=== PATIENT | female | born 2000 | race Caucasian/White ===

== ENCOUNTER 2023-02-20 18:08 | Outpatient (REF) | payer MEDICAID, SELFPAY ==
[2023-02-20 18:59] LABS: Influenza A PCR NEGATIVE (Negative); Influenza B PCR NEGATIVE (Negative); Resp Syncy Virus RNA Qual PCR NEGATIVE (Negative); SARS COV2 PCR INHOUSE NEGATIVE (Negative)
== END 2023-02-20 18:09 | disposition home or self-care (01) ==
LOC: HO.HHCLNP 18:08
PROVIDERS: Visit Provider Emergency Medicine
DX: Z20.822 Contact with and (suspected) exposure to COVID-19 (principal); R68.89 Other general symptoms and signs
CPT/HCPCS: 0241U

== ENCOUNTER 2023-02-28 11:04 | Emergency (ER) | payer MEDICAID, SELFPAY ==
[2023-02-28 11:11] VITALS: BP 120/80; PULSE 88; O2SAT 98
[2023-02-28 11:12] VITALS: BP 118/65; PULSE 86; RESP 18; TEMP 36.8; O2SAT 98; BMI 19.3
--- NOTE | 2023-02-28 11:19 | ED.GENADULT ---
HPI - General Adult General Chief complaint: General Medical Stated complaint: COUGH,NAUSEA FROM SCHOOL PER EMS Time Seen by Provider: 02/28/23 12:21 Source: patient Mode of arrival: ambulatory Limitations: no limitations History of Present Illness HPI narrative: This is a 22-year-old female presenting to the emergency department via ambulance for common planes of fatigue, malaise, myalgias, nonproductive cough, substernal nonradiating chest pressure that is mostly present with cough, poor p.o. intake, body aches and pains and lightheadedness for the past 4 days worsening. Denies sick contacts. Patient reports she had subjective fevers and chills yesterday however not today. Denies headache, vision changes, weakness, hematemesis, changes in bowel habits or urinary habits, shortness of breath. Related Data Previous Rx's Medication Instructions Recorded albuterol sulfate 90 mcg/actuation 2 inh inhalation Q4-6H PRN 02/28/23 breath activated powder inhaler shortness of breath or wheezing #1 ea benzonatate 100 mg capsule 100 mg PO BID PRN cough #20 caps 02/28/23 Allergies Allergy/AdvReac Type Severity Reaction Status Date / Time No Known Allergies Allergy Verified 02/28/23 11:19 Review of Systems Review of Systems: Constitutional : No Weight loss, + Fever, + Chills, + Fatigue, + Malaise ENT/Mouth : No sore throat, No Rhinorrhea Eyes: No Eye Pain, No Swelling, No Redness Cardiovascular : + Chest Pain, No SOB, No Dyspnea on Exertion, No Orthopnea, No Edema, No Palpitations Respiratory : + Cough, No Sputum, No Wheezing Gastrointestinal : No Nausea, No Vomiting, No Diarrhea, No Constipation, No abdominal Pain, No Hematochezia, No Melena Genitourinary : No Dysuria, No Urinary Frequency, No Hematuria, Musculoskeletal : No joint pain, No Myalgias, No Joint Swelling Skin : No Skin Lesions, No rash Neuro : No Weakness, No Numbness, No Dizziness, No Headache Psych : No Anxiety/Panic, No Depression All other systems reviewed and are negative Yes all other systems are reviewed and are negative PMFSH Past Medical History Attestation statement: The following information was validated with the patient. Source: old records reviewed and nursing notes reviewed Social History Social History Advance Directives: No Advance Directives Information Provided: Yes Physical Exam ED Vital Signs: Vital Signs - 24 hr 02/28/23 11:12 Temperature 98.3 F Pulse Rate 86 Respiratory Rate 18 Blood Pressure 118/65 Pulse Oximetry 98 Oxygen Delivery Method Room Air BMI result Body Mass Index 19.3 Course Course Course Narrative: This is a rapid medical exam: Additional HPI, ROS, PE not included below will be deferred to primary provider. Patient is a 22-year-old Japanese-speaking female complaining of 4 days of decreased appetite, nausea, weakness, lightheadedness, nonproductive cough, and chest pain. Denies vomiting, diarrhea, constipation. [place] subjective fever yesterday. Plan: EKG, CXR, labs Reevaluation(s) Reevaluation #1: CBC appears to be within normal limits. Chemistry unremarkable. Troponin negative, EKG nonischemic. Beta hCG negative. COVID, influenza, negative. Chest x-ray pending. This is likely viral illness Time: 13:06 Medical Decision Making Medical Decision Making [facility] Narrative: 1304 22-year-old female presents with fatigue, malaise, body aches and pains, poor p.o. intake, cough the past 4 days. Physical examination benign Likely viral illness versus bronchitis versus COVID versus influenza versus RSV. Unlikely PE (perc negative), pneumonia, respiratory distress, atypical presentation of ACS. Plan viral testing basic labs and chest x-ray Differential Diagnosis Differential Diagnoses: The differential diagnosis associated with the presentation includes Likely viral illness versus bronchitis versus COVID versus influenza versus RSV. Unlikely PE, pneumonia, respiratory distress, atypical presentation of ACS. Admission/Observation Consideration of admission/observation: Escalation of care including admission/observation considered unlikely unlikelyy Lab Data [facility] Lab Attestation statement: I reviewed the patient's lab results. 02/28/23 11:34 02/28/23 11:34 Labs: Lab Results 02/28/23 Range/Units 11:34 WBC 6.2 (4.8-10.8) X10*3/uL RBC 4.75 (4.20-5.50) X10*6/uL Hgb 13.2 (12.0-16.0) g/dl Hct 41.1 (37.0-47.0) % MCV 86.5 (80.0-98.0) fL MCH 27.8 (27.0-33.0) pg MCHC 32.1 (31.0-35.0) g/dl RDW 13.4 (11.0-16.0) % Plt Count 220 (160-400) X10*3/uL MPV 9.6 (9.4-12.3) fL Immature Gran % (Auto) 0.2 (0.0-0.4) % Neut % (Auto) 75.0 H (45-73) % Lymph % (Auto) 14.9 L (20-40) % [place] % (Auto) 6.6 (2-11) % Eos % (Auto) 3.0 (0-4) % Baso % (Auto) 0.3 (0-2) % Lymph # (Auto) 0.9 L (1.2-4.9) X10*3/uL [place] # (Auto) 0.4 (0.1-1.2) X10*3/uL Eos # (Auto) 0.2 (0.0-0.4) X10*3/uL Baso # (Auto) 0.0 (0.0-0.2) X10*3/uL Abs Immat Gran (auto) 0.01 (0.00-0.03) X10*3/uL Absolute Neuts (auto) 4.7 (2.0-8.3) x10*3/uL Absolute Nucleated RBC 0.000 (0.0-0.012) X10*3/uL Nucleated RBC % (auto) 0.0 (0.0-0.2) /100WBC Sodium 140 (135-145) mmol/L Potassium 4.3 (3.3-5.1) mmol/L Chloride 105 (96-108) mmol/L Carbon Dioxide 25 (22-29) mmol/L Anion Gap 14 (12-20) BUN 11 (9-16) mg/dL Creatinine 0.70 (0.5-1.4) mg/dL Estim Creat Clear Calc 99.2 Estimated GFR > 60 Random Glucose 86 (60-115) mg/dL Calcium 9.4 (8.4-10.2) mg/dL Total Bilirubin 0.5 (0.0-1.0) mg/dL AST 26 (5-31) U/L ALT 16 (0-31) U/L Alkaline Phosphatase 53 (39-117) U/L Troponin I High Sens < 2.7 (<3.5-17.0) ng/L Total Protein 7.8 (6.5-8.0) g/dL Albumin 4.6 (3.5-5.0) g/dL Beta HCG, Quant < 2 mIU/mL COVID-19 (HERNAN) Negative (Negative) COVID-19 Clin Com See Note Influenza Type A (ISSAC) Negative (Negative) Influenza Type B (ISSAC) Negative (Negative) Influenza A & B Note See Note Independent Interpretation I performed an independent interpretation of an: EKG (Ventricular rate of 76, AK normal, QRS normal, QT/QTC normal EKG with normal sinus rhythm with sinus arrhythmia, no ST elevations or inversions concerning for ischemia.) and Plain X-Ray Radiology Impression Discussion of test interpretation with radiology: I have reviewed the radiologist's reading. Critical Care Time Critical Care Time Critical Care Time: No Discharge Plan Discharge Clinical Impression: Viral illness Patient Disposition: Home, Self-Care Instructions: Viral Syndrome (ED) Additional Instructions: Take your medications as prescribed. If you were prescribed antibiotics today, it is important that you take your medication to their entirety, do not skip any doses, do not finish them early. Follow-up with your primary care provider this week. Return to the emergency department with new or worsening symptoms. Such as fevers, chills, chest pain, shortness of breath, nausea, vomiting, dizziness, headache, vision changes, lethargy In case of emergency call 911 Prescriptions: New benzonatate 100 mg capsule 100 mg PO BID PRN (Reason: cough) Qty: 20 0RF albuterol sulfate 90 mcg/actuation aerosol powdr breath activated 2 inh inhalation Q4-6H PRN (Reason: shortness of breath or wheezing) Qty: 1 0RF Referrals: [facility] [Primary Care Provider] - 2 days Stand Alone Forms: Work/School Release
== END 2023-02-28 14:03 | disposition home or self-care (01) ==
PROVIDERS: Emergency Provider Emergency Medicine Emergency Medical Services
DX: B34.9 Viral infection, unspecified (principal); R05.9 Cough, unspecified; M79.10 Myalgia, unspecified site; Z11.52 Encounter for screening for COVID-19
CPT/HCPCS: 36415; 71046; 80053; 84484; 84702; 85025; 87502; 87635; 93005; 99283

== ENCOUNTER 2023-04-02 14:34 | Outpatient (AMB) | payer MEDICAID, SELFPAY ==
--- NOTE | 2023-04-02 14:38 | MHC.OFFVIS ---
Intake Vital Signs 04/02/23 14:39 Height 5 ft 3 in Weight 112 lb 6.972 oz BMI 19.9 BP 115/67 Blood Pressure Location Lt brachial Position Sitting Pulse 83 Intake Visit Reasons: HEARTBURN Intake Note: Jessenia presents in the office as a new patient for GERD. CC: She is here today due to acid reflux. She states that she has pains in her stomach sometimes. She does have some constipation. Administrative Staff Supervisor Required: Yes Administrative Staff Supervisor Name: Michelle [id number] Allergies No Known Allergies Allergy (Verified 04/02/23 14:40) Medication List - Last Reconciled 04/02/23 by Ginny Forrester PA-C albuterol sulfate 90 mcg/actuation 2 inhalations inhalation Q4-6H PRN benzonatate 100 mg PO BID PRN famotidine 20 mg PO BID fluoride (sodium) 1.1% (Denta 5000 Plus) appl PO BEDTIME HPI HPI Comments History of Present Illness Details A 22 y/o female referred for gastritis- she had upper abdominal roger since she was little- the pains use to be stronger. Appetite is good she was taking omeprazole/ famotidine-only take prn She once in a while has constipation- depends on diet No nausea, V/D, fever or chills. No wt loss PFSH Social History (Updated 04/02/23 @ 14:51 by Ginny Forrester PA-C) Household Members Other:: G. mother Patient Tobacco Use Status: Never used Tobacco Current occupational status: employed Current occupation: [employer] Review of Systems Const All systems reviewed & are unremarkable except as noted in HPI and below Card Denies chest pain and Denies dyspnea Resp Denies dyspnea GI Denies hematochezia, Reports dyspepsia, Denies nausea and Denies vomiting Psych Reports anxiety Physical Exam Vital Signs: Last Vital Signs Pulse 83 04/02/23 14:39 BP 115/67 04/02/23 14:39 BMI result Body Mass Index 19.9 Const General: cooperative, healthy appearing and comfortable Nutritional Appearance: thin Limitations: language barrier Eyes Sclerae: sclerae normal Resp Effort & Inspection: normal respiratory effort and able to speak in complete sentences Auscultation: clear to auscultation bilaterally, no rales, no rhonchi and no wheezes Cardio Rate: regular rate Rhythm: regular rhythm Heart sounds: S1 normal heart sound present and S2 normal heart sound present GI Palpation (GI): Soft to palpation and nontender Auscultation: normal bowel sounds Skin General skin exam: no rashes or lesions noted Extrem General: Yes full ROM Psych Appearance: grossly normal and well kempt Mental Status: mental status grossly normal Speech and movement: Clear speech present Affect: normal affect Attitude: cooperative Thought process: Normal thought process present Thought content: Normal thought content present Results Reviewed Results Reviewed: reviewed labs-02/28/23- Assessment & Plan Assessment & Plan (1) Heartburn: Comment: very pleasant - stop famotodine begin carafate 1 gm bid Code(s): R12 - Heartburn Plan HP stool antigen Orders: Orders H pylori Ag Stool 1 Week A04.8 - Other specified bacterial intestinal infections Medications: New sucralfate 1 g PO BID 4 weeks 56 tabs 1RF Changed From benzonatate 100 mg PO BID PRN 20 caps 0RF cough To benzonatate 100 mg PO BID PRN cough Patient Instructions: carafate x 2 weeks- HP stool antigen if positive - tx call with concerns pole cutter- Coding Level of Care Code New Pt Level 3 (98898) Diagnoses Heartburn R12 Time Spent (min) 30 Comment [id number]
[2023-04-02 14:39] VITALS: BP 115/67; PULSE 83; BMI 19.9
== END 2023-04-02 15:05 | disposition home or self-care (01) ==
PROVIDERS: Visit Provider Physician Assistant
DX: R12 Heartburn (principal)
CPT/HCPCS: 99203

== ENCOUNTER 2023-04-02 14:34 | Outpatient (REF) | payer MEDICAID, SELFPAY | END 2023-04-02 14:35 | disposition home or self-care (01) | LOC: HO.LAB 14:34 | PROVIDERS: Visit Provider Physician Assistant | DX: K21.9 Gastro-esophageal reflux disease without esophagitis (principal); K59.00 Constipation, unspecified; Z79.899 Other long term (current) drug therapy | CPT/HCPCS: 99212 ==

== ENCOUNTER 2023-04-06 17:40 | Outpatient (REF) | payer MEDICAID, SELFPAY | END 2023-04-06 17:41 | disposition home or self-care (01) | LOC: HO.LNP 17:40 | PROVIDERS: Visit Provider Physician Assistant | DX: Z13.89 Encounter for screening for other disorder (principal) ==

== ENCOUNTER 2023-04-08 | Outpatient (REF) | payer MEDICAID, SELFPAY | END 2023-04-08 00:01 | disposition home or self-care (01) | LOC: HO.LNP | PROVIDERS: Visit Provider Physician Assistant | DX: A04.8 Other specified bacterial intestinal infections (principal) | CPT/HCPCS: 87338 ==

== ENCOUNTER 2023-05-14 14:51 | Outpatient (AMB) | payer MEDICAID, SELFPAY ==
--- NOTE | 2023-05-14 15:09 | A.OFFVIS_ITS ---
Intake Vital Signs 05/14/23 15:11 Height 5 ft 3 in Weight 110 lb BMI 19.5 BP 101/59 L Blood Pressure Location Lt brachial Position Sitting Pulse 80 Intake Visit Reasons: 6 week follow up med check Intake Note: Patient 6 weeks follow up for med check. Patient cc: diarrhea and denies any other GI issues. Soft Sugar Cutter Required: Yes Soft Sugar Cutter Name: [facility] [place] [place] Interpeter Accompanied by: Self / Same As Patient Allergies No Known Allergies Allergy (Verified 05/14/23 15:09) Medication List - Last Reconciled 05/14/23 by Ginny Forrester PA-C albuterol sulfate 90 mcg/actuation 2 inhalations inhalation Q4-6H PRN benzonatate 100 mg PO BID PRN famotidine 20 mg PO BID fluoride (sodium) 1.1% (Denta 5000 Plus) appl PO BEDTIME sucralfate 1 g PO BID 4 weeks HPI HPI Comments History of Present Illness Details A 22 y/o seen with HB- sx resolved with famotodine No GI complaints HP neg Appetite good No bowel issues No N/V/D/ heartburn- fever or chills PFSH Social History Household Members Other:: G. mother Patient Tobacco Use Status: Never used Tobacco Current occupational status: employed Current occupation: [employer] Review of Systems Const All systems reviewed & are unremarkable except as noted in HPI and below Card Denies chest pain and Denies dyspnea Resp Denies dyspnea GI Denies bloating, Denies change in bowel habits, Denies heartburn, Denies nausea and Denies vomiting Physical Exam Vital Signs: Last Vital Signs Pulse 80 05/14/23 15:11 BP 101/59 L 05/14/23 15:11 BMI result Body Mass Index 19.5 Const General: cooperative, healthy appearing, comfortable and no acute distress Eyes Sclerae: sclerae normal Resp Effort & Inspection: normal respiratory effort and able to speak in complete sentences Skin General skin exam: no rashes or lesions noted Extrem General: Yes full ROM Psych Appearance: grossly normal and well kempt Mental Status: mental status grossly normal Speech and movement: Normal speech and movement present Affect: normal affect Attitude: cooperative Thought process: Normal thought process present Thought content: Normal thought content present Insight: Good insight present (Psych) Judgement: Good judgement present (Psych) Assessment & Plan Assessment & Plan (1) Heartburn: Comment: very pleasant -sx resolved dietary modifications cont famotodine Code(s): R12 - Heartburn Plan: dietary modifications cont famotodine Plan dietary modifications cont famotodine Patient Instructions: precautions reviewed, avoid culprits dietary modifications cont famotodine Coding Level of Care Code Est Pt Level 3 (04967) Diagnoses Heartburn R12 Time Spent (min) [address]
[2023-05-14 15:11] VITALS: BP 101/59; PULSE 80; BMI 19.5
== END 2023-05-14 15:27 | disposition home or self-care (01) ==
PROVIDERS: Visit Provider Physician Assistant
DX: R12 Heartburn (principal)
CPT/HCPCS: 99213

== ENCOUNTER → 2023-05-14 14:51 | Outpatient (BNVA) | payer MEDICAID, SELFPAY | PROVIDERS: Visit Provider Physician Assistant | DX: R12 Heartburn (principal) | CPT/HCPCS: 99212 ==

== ENCOUNTER 2025-05-04 16:27 | Emergency (ER) | payer OTHER, SELFPAY ==
--- NOTE | ~2025-05-04 | US_ITS ---
EXAMINATION: US ABDOMEN LIMITED CLINICAL INFORMATION: Upper abdominal pain.. COMPARISON: None available. TECHNIQUE: Real-time ultrasound of the right upper quadrant abdomen using grayscale technique. FINDINGS: Liver measures 14 cm. Coarse echotexture. No nodular surface. No solid or cystic lesion. Main portal vein is patent with normal hepatopedal flow direction. Gallbladder is fluid-filled contracted. No pericholecystic fluid collection or gallbladder wall thickening. Common bile duct measures 3 mm. Right kidney measures 11 cm. Normal echotexture. Renal cortical thickness is normal. No hydronephrosis. No solid or cystic lesion. No ascites. US/US abdomen limited IMPRESSION: No cholelithiasis or choledocholithiasis. No ascites. Normal-sized liver. Electronically signed by: Umer Hall MD 05/05/2025 06:58 AM PAT
[2025-05-04 17:21] VITALS: BP 127/60; PULSE 80; RESP 18; TEMP 36.8; O2SAT 99; BMI 19.9
--- NOTE | 2025-05-04 17:38 | ED.GENADULT ---
HPI - General Adult General Chief complaint: Abdominal Pain Stated complaint: Nausea Vomiting Diarrhea Time Seen by Provider: 05/05/25 04:05 Source: patient and dedicated truck driver Mode of arrival: ambulatory Limitations: no limitations History of Present Illness ED Provider: MAKENNA BURROWS narrative: 24-year-old female with no significant past medical history and no surgery here with complaint of 1 week upper abdominal pain as well as nausea and vomiting. She has had diarrhea but only to about today. She blames it on a recent antibiotic that she was started on for her throat ( 2 weeks ago). She states she stopped taking it as she thought it was making her symptoms worse. she states no recent travel, sick contacts, recent procedures. She has not had a fever. She has not take a lot she has never had this before. MD complaint: Upper abdominal pain, nausea, vomiting Onset (ago): week(s) (1) Location: abdomen Radiation: non-radiation Severity: moderate Quality: aching Pain Consistency: intermittent Relieving factors: none Exacerbating factors: eating Associated symptoms: loss of appetite, malaise and nausea/vomiting Treatments prior to arrival: none Related Data Home Medications ?Medication ?Instructions ?Recorded ?Confirmed benzonatate 100 mg capsule 100 mg PO BID PRN cough 04/02/23 05/14/23 famotidine 20 mg tablet 20 mg PO BID 04/02/23 05/14/23 fluoride (sodium) 1.1 % dental appl PO BEDTIME 04/02/23 05/14/23 cream (Denta 5000 Plus) Previous Rx's ?Medication ?Instructions ?Recorded albuterol sulfate 90 mcg/actuation 2 inh inhalation Q4-6H PRN 02/28/23 breath activated powder inhaler shortness of breath or wheezing #1 ea sucralfate 1 gram tablet 1 g PO BID 4 weeks #56 tabs 04/02/23 ondansetron 4 mg disintegrating 4 mg PO Q8H PRN nausea and 05/05/25 tablet vomiting #20 tabs sucralfate 100 mg/mL oral 1 g (10 mL) PO BID 7 days #140 mL 05/05/25 suspension Allergies Allergy/AdvReac Type Severity Reaction Status Date / Time No Known Allergies Allergy Verified 05/04/25 17:23 Review of Systems Review of Systems: Constitutional : No Weight loss, No Fever, No Chills ENT/Mouth : No sore throat, No Rhinorrhea Eyes: No Swelling, No Redness Cardiovascular : No Chest Pain, No SOB, NoEdema Respiratory : No Cough, No Sputum, No Wheezing Gastrointestinal : Positive Nausea, Positive Vomiting, no Diarrhea, positive abdominal Pain, No Hematochezia, No Melena Genitourinary : No Dysuria, No Urinary Frequency, No Hematuria, No Urgency Musculoskeletal : No joint pain, No Myalgias, No Joint Swelling Skin : No Skin Lesions, No rash All other systems reviewed and are negative. [facility] Past Medical History Attestation statement: The following information was validated with the patient. Source: old records reviewed Medical History (Updated 05/05/25 @ 07:16 by Eleni Vargas DO) Heartburn Social History Social History Household Members Other:: G. mother Patient Tobacco Use Status: Never used Tobacco Advance Directives: No Advance Directives Information Provided: Yes Current occupational status: employed Current occupation: [employer] Physical Exam ED Vital Signs: Vital Signs - 24 hr 05/04/25 17:21 05/04/25 20:09 05/05/25 00:16 Temperature 98.2 F 99.9 F 98 F Pulse Rate 80 75 66 Respiratory Rate 18 16 16 Blood Pressure 127/60 105/51 L 108/55 L Pulse Oximetry 99 99 98 Oxygen Delivery Method Room Air Room Air Room Air 05/05/25 07:05 05/05/25 07:41 Temperature 98.1 F Pulse Rate 78 78 Respiratory Rate 14 14 Blood Pressure 101/59 L 101/59 L Pulse Oximetry 99 99 Oxygen Delivery Method Room Air Room Air BMI result Body Mass Index 19.9 Appearance: Alert. Oriented X3. No acute distress. Eyes: Pupils equal, round and reactive to light. ENT: Pharynx normal. Neck: Normal inspection. Neck supple. CVS: Normal heart rate and rhythm. Pulses normal. Respiratory: No respiratory distress. Breath sounds normal. Abdomen: Soft and mild upper abdominal tenderness negative Hurtado's sign Skin: Skin warm and dry. Normal skin color. Extremities: No lower extremity edema. Neuro: Oriented X 3. No motor deficit. No sensory deficit. Course Course Course Narrative: RME: 24 yold female presents to the ED for upper abdominal pain with nausea and vomitting. SARS labs ordeed Medications Administered Discontinued Medications Generic Name Dose Route Start Last Admin Trade Name Freq PRN Reason Stop Dose Admin Lactated Ringer's 1,000 mls @ 999 mls/hr 05/05/25 04:30 05/05/25 06:16 Lr IV 05/05/25 05:30 Infused .Q1H1M ONE Infusion Ondansetron HCl 4 mg 05/05/25 04:31 05/05/25 04:45 Ondansetron Hcl 4 Mg/2 Ml Vial IVPUSH 05/05/25 04:32 4 mg ONCE ONE Administration Medical Decision Making Medical Decision Making [facility] Narrative: 24-year-old female with no past medical history here with complaint of 1 week of nausea vomiting she also has upper abdominal pain. At this time she has no right lower quadrant pain. I suspect after this amount of time if she had acute infection she would be more ill-appearing. I am going to obtain basic labs, hydrate and started on nausea medication. I am also going to obtain an ultrasound of the gallbladder given her upper abdominal pain. She has not had any diarrhea here and even though it was associated with antibiotic she only has 2 a day this seems very atypical for C diff. I suspect that she we will need supportive medications like antacids in nausea medications. Differential Diagnosis Differential Diagnoses: The differential diagnosis associated with the presentation includes Gastritis, biliary colic, dehydration, , AZAEL Admission/Observation Consideration of admission/observation: Escalation of care including admission/observation considered She feels much better is able to tolerate water her workup has been reassuring Lab Data [facility] Lab Attestation statement: I reviewed the patient's lab results. 05/04/25 17:42 05/04/25 17:42 Labs: Lab Results 05/04/25 05/04/25 Range/Units 17:42 17:46 WBC 4.4 L (4.8-10.8) X10*3/uL RBC 4.87 (4.20-5.50) X10*6/uL Hgb 13.3 (12.0-16.0) g/dl Hct 41.9 (37.0-47.0) % MCV 86.0 (80.0-98.0) fL MCH 27.3 (27.0-33.0) pg MCHC 31.7 (31.0-35.0) g/dl RDW 13.2 (11.0-16.0) % Plt Count 233 (160-400) X10*3/uL MPV 10.2 (9.4-12.3) fL Immature Gran % (Auto) 0.2 (0.0-0.4) % Neut % (Auto) 62.6 (45-73) % Lymph % (Auto) 26.6 (20-40) % [place] % (Auto) 7.2 (2-11) % Eos % (Auto) 2.9 (0-4) % Baso % (Auto) 0.5 (0-2) % Lymph # (Auto) 1.2 (1.2-4.9) X10*3/uL [place] # (Auto) 0.3 (0.1-1.2) X10*3/uL Eos # (Auto) 0.1 (0.0-0.4) X10*3/uL Baso # (Auto) 0.0 (0.0-0.2) X10*3/uL Abs Immat Gran (auto) 0.01 (0.00-0.03) X10*3/uL Absolute Neuts (auto) 2.8 (2.0-8.3) x10*3/uL Absolute Nucleated RBC 0.000 (0.0-0.012) X10*3/uL Nucleated RBC % (auto) 0.0 (0.0-0.2) /100WBC Sodium 142 (135-145) mmol/L Potassium 3.8 (3.3-5.1) mmol/L Chloride 106 (96-108) mmol/L Carbon Dioxide 27 (22-29) mmol/L Anion Gap 13 (12-20) BUN 13 (9-16) mg/dL Creatinine 0.69 (0.5-1.4) mg/dL Estim Creat Clear Calc 101.8 Estimated GFR > 60 Random Glucose 91 (60-115) mg/dL Calcium 9.6 (8.4-10.2) mg/dL Total Bilirubin 0.3 (0.0-1.0) mg/dL AST 26 (5-31) U/L ALT 19 (0-31) U/L Alkaline Phosphatase 59 (39-117) U/L Total Protein 8.1 H (6.5-8.0) g/dL Albumin 5.0 (3.5-5.0) g/dL Lipase 19 (8-78) U/L Beta HCG, Quant < 2 mIU/mL Urine Color Yellow Urine Appearance Clear Urine pH 5.0 (5.0-9.0) Ur Specific [place] >= 1.030 H (1.005-1.025) Urine Protein Negative (Neg-Trace) mg/dL Urine Glucose (UA) Negative (Negative) mg/dL Urine Ketones Trace (Negative) mg/dL Urine Blood Moderate (2+) H (Negative) Urine Nitrite Negative (Negative) Ur Leukocyte Esterase Negative (Negative) Urine RBC >20 H (0-2) /HPF Urine WBC 0-5 (0-5) /HPF Ur Squamous Epith Cells 0-2 (0-2) /HPF Urine Bacteria None Seen (None Seen) Hyaline Casts 0-2 (0-2) /LPF Urine Test NEGATIVE (NEGATIVE) Influenza Type A (PCR) NEGATIVE (Negative) Influenza Type B (PCR) NEGATIVE (Negative) RSV RNA Qual (PCR) NEGATIVE (Negative) SARS-CoV-2 RNA (RT-PCR) NEGATIVE (Negative) S. pyogenes GrpA ISSAC Negative (Negative) Independent Interpretation I performed an independent interpretation of an: Ultrasound ( no biliary colic) Radiology Impression Discussion of test interpretation with radiology: I have reviewed the radiologist's reading. Independent Historian Clinical information obtained from an independent historian. History obtained from or confirmed by: Spouse External Record Review External record reviewed: Outpatient record Prescription Management I considered prescription management with: Other Discharge Plan Discharge Clinical Impression: Acute nausea with nonbilious vomiting Gastritis Qualifiers: Gastritis type: unspecified gastritis Chronicity: acute Gastritis bleeding: without bleeding Qualified Code(s): K29.00 - Acute gastritis without bleeding Patient Disposition: Home, Self-Care Instructions: Gastritis (ED), Acute Nausea and Vomiting (ED) Additional Instructions: please eat a bland diet and take [id number] probiotic as well as yogurt to increase your gut health after oral antibiotics Your labs and ultrasound are reassuring Please rest and stay hydrated Avoid any Motrin, ibuprofen, Aleve, Naprosyn. It is okay to take Tylenol Return for any worsening symptoms or concerns Prescriptions: New sucralfate 100 mg/mL suspension 1 g PO BID 7 Days Qty: 140 0RF ondansetron 4 mg tablet,disintegrating 4 mg PO Q8H PRN (Reason: nausea and vomiting) Qty: 20 0RF No Action albuterol sulfate 90 mcg/actuation aerosol powdr breath activated 2 inh inhalation Q4-6H PRN (Reason: shortness of breath or wheezing) Qty: 1 0RF famotidine 20 mg tablet 20 mg PO BID benzonatate 100 mg capsule 100 mg PO BID PRN (Reason: cough) fluoride (sodium) [Denta 5000 Plus] 1.1 % cream PO BEDTIME sucralfate 1 gram tablet 1 g PO BID 28 Days Qty: 56 1RF Stand Alone Forms: Work/School Release Interventions: ED Discharge Assessment Last Done: 05/05/25 07:41 Discharge Date/Time: 05/05/25 08:01 Print Language: Ukrainian
[2025-05-04 17:52] LABS: MANUAL DIFF FLAG NO
[2025-05-04 17:54] LABS: Hematocrit 41.9 % (37.0-47.0); Hemoglobin 13.3 g/dl (12.0-16.0); Imm Gran Abs Auto 0.01 X10*3/uL (0.00-0.03); Imm Gran Pct Auto 0.2 % (0.0-0.4); Lymphocytes Absolute Auto 1.2 X10*3/uL (1.2-4.9); Mean Corpuscular HGB Conc 31.7 g/dl (31.0-35.0); Mean Corpuscular Hemoglobin 27.3 pg (27.0-33.0); Mean Corpuscular Volume 86.0 fL (80.0-98.0); NRBC Abs Auto 0.000 X10*3/uL (0.0-0.012); NRBC Pct Auto 0.0 /100WBC (0.0-0.2); Platelet Count 233 X10*3/uL (160-400); Red Blood Count 4.87 X10*6/uL (4.20-5.50); White Blood Count 4.4 X10*3/uL (4.8-10.8)
[2025-05-04 18:02] LABS: IDNOW Serial# 55D5AD1C; Strep A Nucleic Acid Negative (Negative)
[2025-05-04 18:08] LABS: Alanine Aminotransferase 19 U/L (0-31); Albumin Level 5.0 g/dL (3.5-5.0); Alkaline Phosphatase 59 U/L (39-117); Anion Gap 13 (12-20); Appearance Urine Clear; Aspartate Amino Transferase 26 U/L (5-31); Blood Urea Nitrogen 13 mg/dL (9-16); Calcium 9.6 mg/dL (8.4-10.2); Carbon Dioxide 27 mmol/L (22-29); Chloride 106 mmol/L (96-108); Creatinine Clr Calc Pharmacy 101.8; Estimated Glomerular Filt Rate > 60; Glucose Urine UA Negative (Negative); Lipase 19 U/L (8-78); PH 5.0 (5.0-9.0); Potassium 3.8 mmol/L (3.3-5.1); Sodium 142 mmol/L (135-145); Specific Gravity - Urine >= 1.030 (1.005-1.025); Total Protein 8.1 g/dL (6.5-8.0); UMIC TRIGGER UACC YES
[2025-05-04 18:16] LABS: UPreg QC Valid YES
[2025-05-04 18:29] LABS: Resp Syncy Virus RNA Qual PCR NEGATIVE (Negative); SARS COV2 PCR INHOUSE NEGATIVE (Negative)
[2025-05-04 20:09] VITALS: BP 105/51; PULSE 75; RESP 16; TEMP 37.7; O2SAT 99
[2025-05-05 00:16] VITALS: BP 108/55; PULSE 66; RESP 16; TEMP 36.6; O2SAT 98
--- OUTSIDE RECORDS SUMMARY | 2025-05-05 03:24 | XMS_ITS | Encounter Summary ---
Author Organization [employer] Address [address] [place] [address] Care Team Providers Care Envelope Sealer Operator Name Role Phone Jhonatandonnie Karlene RAZO Primary Care Provider [phone] Encounter Details Date Type Department Care Team (Late st Contact Info) Description 05/04/2025 Orders Only GENERIC EXTERNAL DATA DEPARTMENT Provider, Generic External Data Social History Tobacco Use Types Packs/Day Years Used Date Smoking Tobacco: Never Smokeless Tobacco: Never Depression Answer Date Recorded Patient Health Questionnaire-9 Score 16 08/02/2022 Housing Stability Answer Date Recorded What is your housing situation today? I have logan orozco 03/13/[address] you li ve. Do you have problems with any of the following? None of the above 03/13/2023 Food Insecurity Answer Date Recorded Within the past 12 months, y ou worried that your food would run out before you got money to buy more: Never True 03/13/2023 Within the past 12 months,th e food you bought just didn't last and you didn't have enough money to get more: Never True Transportation Answer Date Recorded In the past 12 months, has l ack of transportation kept you from medical appts, meetings, work or from getting things needed for daily living? No 03/13/2023 Utilities Answer Date Recorded In the past 12 months, has t he electric, gas, oil or water company threatened to shut off services in your home? No 03/13/2023 Depression Answer Date Recorded Patient Health Questionnaire-2 Score 2 08/02/2022 Comments Unknown Sex and Gender Information Value Date Recorded Sex Assigned at Female 04/25/2022 2:46 PM EST Legal Sex Female 2:46 PM EST Gender Identity Female 04/25/2022 2:46 PM EST Sexual Orientation Straight 04/25/2022 2: 46 PM EST documented as of this encounter Plan of Treatment Not on file documented as of this encounter Procedures Procedure Name Priority Date/Time Associated Diagnosis Comments STREP A NUCLEIC ACID Routine 05/04/2025 5:46 PM EST SARS COV2/INFLUENZA A/B AND RSV RNA QL NAAT Routine 05/04/2025 5:46 PM EST HCG, TOTAL, QN Routine 05/04/2025 5:46 PM EST URINALYSIS, COMPLETE, WITH REFLEX TO CULTURE Routine 05/04/2025 5:42 PM EST CBC WITH AUTO DIFFERENTIAL Routine 05/04/2025 5:42 PM EST HCG, QL, URINE Routine 05/04/2025 5:42 PM EST LIPASE Routine 05/04/2025 5:42 PM EST COMPREHENSIVE METABOLIC PANEL Routine 05/04/2025 5:42 PM EST documented in this encounter Results * SARS-CoV-2 RNA, Influenza A/B, and RSV RNA, Ql NAAT (05/04/2025 5:46 PM EST) Influenza A PCR NEGATIVE Negative [facility] Influenza B PCR NEGATIVE Negative [facility] Resp Syncy Virus RNA Qual PCR NEGATIVE Negative [facility] SARS COV2 PCR NEGATIVE Negative [facility] Comment:All test results mus t be correlated with clinical findings.Negative results do not preclude SARS-CoV2, influenza Avirus, influenza B virus and/or RSV infectionand should not be used as the sole basis for treatment orother patient management decisions. Negative results must becombined with clinical observations, patient history, andepidemiological information.This test has not been evaluated for monitoring treatment ofinfection.This test has been authorized by the FDA under an EmergencyUse Authorization (EUA) for use by authorized laboratories.Testing performed on the [employer] GeneXpert utilizingreal-time RT-PCR.All SARS CoV2 and positive influenza A/B results arereported to [facility]. 05/04/2025 5:46 PM EST 05/04/2025 5:51 PM EST Generic External Data Provider LAB MICROBIOLOGY - GENERAL ORDERABLES Final Result Performing Organization Address [facility]/ZIP Co de Phone Number [facility] [address] [place] [address] [phone] * hCG, Total, Quantitative (05/04/2025 5:46 PM EST) HCG Quantitative <2 mIU/mL [facility] Comment:Weeks post LMP Appro ximate hCG(Last Menstrual Period) Range (mIU/ml)3 - 4 weeks 9 - 1304 - 5 weeks 75 - 2,6005 - 6 weeks 850 - 20,8006 - 7 weeks 4000 - 100,2007 - 12 weeks 11,500 - 289,05880 - 16 weeks 18,300 - 137,67731 - 29 weeks (2nd trimester) 1,400 - 53,44627 - 41 weeks (3rd trimester) 940 - 60,000The Hamilton B- hCG assay is used for the early detection ofpregnancy; it cannot be used to diagnose any conditionunrelated to . If a B-hCG level is not supportedby the clinical evidence, results should be confirmed by analternative method (qualitative urine hCG, for example). 05/04/2025 5:46 PM EST 05/04/2025 5:51 PM EST Generic External Data Provider LAB BLOOD ORDERAB LES Final Result Performing Organization Address City/[facility]/ZIP Co de Phone Number [facility] [address] [place] [address] [phone] * Strep A Nucleic Acid (05/04/2025 5:46 PM EST) IDNOW SERIAL# [id number] [facility] Strep A Nucleic Acid Negative Negative [facility] Comment:All test results mus t be correlated with clinical findings.This test has not been evaluated for monitoring treatment ofinfection.Additional follow-up testing using the culture method isrequired if the result is negative and clinical symptomspersist, or in the event of an acute rheumatic feveroutbreak. 05/04/2025 5:46 PM EST 05/04/2025 5:51 PM EST Generic External Data Provider LAB MICROBIOLOGY - GENERAL ORDERABLES Final Result Performing Organization Address [facility] Co de Phone Number [facility] [address] [place] [phone] * (ABNORMAL) Urinalysis, Complete, with Reflex to Culture (05/04/2025 5:42 PM EST) Color Urine Yellow [facility] Appearance Urine Clear [facility] PH 5.0 5.0 - 9.0 [facility] Glucose Urine UA Negative Negative mg/dL [facility] Urine Blood Moderate (2+)(A) Negative [facility] Specific [place] - Urine >=1.030(H) 1.005 - 1.025 [facility] Urine Protein Negative Neg-Trace mg/dL [facility] Urine Ketones Trace Negative mg/dL [facility] Nitrite Urine Negative Negative [facility] Leukocyte Esterase Urine Negative Negative [facility] RBC Urine >20(A) 0 - 2 /HPF [facility] Urine WBC 0-5 0 - 5 /HPF [facility] Urine Squamous Epithelial Cell 0-2 0 - 2 /HPF [facility] Urine Bacteria None Seen None Seen [facility] Hyaline Casts, Urine 0-2 0 - 2 /LPF [facility] 05/04/2025 5:42 PM EST 05/04/2025 5:51 PM EST Narrative [facility] - 05/04/2025 7:00 PM EST [id number], Clean Catch Generic External Data Provider LAB URINE ORDERAB LES Final Result Performing Organization Address [facility] Co de Phone Number [facility] [address] [place] [phone] * HCG, Qualitative, Urine (05/04/2025 5:42 PM EST) [facility] Urine NEGATIVE NEGATIVE [facility] Comment:This test was develo ped to detect early . Falsenegative results may occur after the 5th - 7th week ofpregnancy when using this test method. If clinicallyindicated, consider a serum hCG. 05/04/2025 5:42 PM EST 05/04/2025 5:51 PM EST Generic External Data Provider LAB URINE ORDERAB LES Final Result Performing Organization Address [facility]/ZIP Co de Phone Number [facility] [address] [place] [phone] * Lipase (05/04/2025 5:42 PM EST) [facility] Lipase 19 8 - 78 U/L [facility] 05/04/2025 5:42 PM EST 05/04/2025 5:51 PM EST Generic External Data Provider LAB BLOOD ORDERAB LES Final Result Performing Organization Address [facility] Co de Phone Number [facility] [address] [place] [phone] * (ABNORMAL) Comprehensive Metabolic Panel (05/04/2025 5:42 PM EST) [facility] Sodium 142 135 - 145 mmol/L [facility] Potassium 3.8 3.3 - 5.1 mmol/L [facility] Chloride 106 96 - 108 mmol/L [facility] Carbon Dioxide 27 22 - 29 mmol/L [facility] Anion Gap 13 12 - 20 [facility] Urea Nitrogen (BUN) 13 9 - 16 mg/dL [facility] Creatinine, Serum 0.69 0.5 - 1.4 mg/dL [facility] Creatinine Clr Calc Pharmacy 101.8 [facility] Comment:Provided height and weight: 160.02 cm,50.9 kg.eGFR (calculated from the MDRD study equation) and eCrCl(calculated from the Cockcroft-Gault equation) are based ondifferent parameters and may not yield comparable results.If eCrCl result is absurd, please check patient'sheight/weight. Estimated Glomerular Filt Rate >60 [facility] Comment:Chronic Kidney Disea se: Estimated GFR < 60 mL/min/1.23o4Acxinp Kidney Disease: Estimated GFR < 15 mL/min/1.73m2 Glucose 91 60 - 115 mg/dL [facility] Calcium 9.6 8.4 - 10.2 mg/dL [facility] Bilirubin, Total 0.3 0.0 - 1.0 mg/dL [facility] Aspartate Amino Transferase 26 5 - 31 U/L [facility] Alanine Aminotransferase 19 0 - 31 U/L [facility] Total Protein 8.1(H) 6.5 - 8.0 g/dL [facility] Albumin Level 5.0 3.5 - 5.0 g/dL [facility] Alkaline Phosphatase 59 39 - 117 U/L [facility] 05/04/2025 5:42 PM EST 05/04/2025 5:51 PM EST us Generic External Data Provider LAB BLOOD ORDERAB LES Final Result [facility] [address] [place] [phone] * (ABNORMAL) CBC auto differential (05/04/2025 5:42 PM EST) White Blood Count 4.4(L) 4.8 - 10.8 X10*3/uL [facility] Red Blood Count 4.87 4.20 - 5.50 X10*6/uL [facility] Hemoglobin 13.3 12.0 - 16.0 g/dl [facility] Hematocrit 41.9 37.0 - 47.0 % [facility] Mean Corpuscular Volume 86.0 80.0 - 98.0 fL [facility] Mean Corpuscular Hemoglobin 27.3 27.0 - 33.0 pg [facility] Mean Corpuscular HGB Conc 31.7 31.0 - 35.0 g/dl [facility] Red Cell Distribution Width 13.2 11.0 - 16.0 % [facility] Platelet Count 233 160 - 400 X10*3/uL [facility] Mean Platelet Volume 10.2 9.4 - 12.3 fL [facility] Neutrophils Percent Auto 62.6 45 - 73 % [facility] Imm Gran Pct Auto 0.2 0.0 - 0.4 % [facility] Lymphocytes Percent Auto 26.6 20 - 40 % [facility] Monocytes Percent Auto 7.2 2 - 11 % [facility] Eosinophils Percent Auto 2.9 0 - 4 % [facility] Basophils Percent Auto 0.5 0 - 2 % [facility] NRBC Pct Auto 0.0 0.0 - 0.2 /100WBC [facility] Neutrophils Absolute Auto 2.8 2.0 - 8.3 x10*3/uL [facility] Imm Gran Abs Auto 0.01 0.00 - 0.03 X10*3/uL [facility] Lymphocytes Absolute Auto 1.2 1.2 - 4.9 X10*3/uL [facility] Monocytes Absolute Auto 0.3 0.1 - 1.2 X10*3/uL [facility] Eosinophils Absolute Auto 0.1 0.0 - 0.4 X10*3/uL [facility] Basophils Absolute Auto 0.0 0.0 - 0.2 X10*3/uL [facility] NRBC Abs Auto 0.000 0.0 - 0.012 X10*3/uL [facility] 05/04/2025 5:42 PM EST 05/04/2025 5:51 PM EST us Generic External Data Provider LAB BLOOD ORDERAB LES Final Result [facility] [address] [place] [phone] documented in this encounter Visit Diagnoses Not on filedocumented in this encounter Additional Health Concerns Assessment Noted Time PHQ-9 Depression Total Score: 16 023 2:00 PM EST documented as of this encounter Care Teams Envelope Sealer Operator Relationship Specialty Start Date End Date Karlene Benjamin NP [address] [place] [address] PCP - General Family Medicine 02/28/23 documented as of this encounter
--- OUTSIDE RECORDS SUMMARY | 2025-05-05 03:24 | XMS_ITS | Encounter Summary ---
Author Organization [employer] Address [address] [place] [address] Care Team Providers Care Priest Name Role Phone Anju Corrales ELECTRO OPTICS ENGINEER Primary Care Provider Karlene Ward INFANTRY OFFICER Primary Care Provider Reason for Visit * Reason Onset Date Comments Referral 08/17/2022 Encounter Details Date Type Department Care Team ([facility] st Contact Info) Description 08/17/2022 Telephone [facility] [address] [place] [address] Anju Corrales FNP Referral Social History Tobacco Use Types Packs/Day Years Used Date Smoking Tobacco: Never Assessed Depression Answer Date Recorded Patient Health Questionnaire-9 Score 16 08/02/2022 Depression Answer Date Recorded Patient Health Questionnaire-2 Score 2 08/02/2022 Comments Unknown Sex and Gender Information Value Date Recorded Sex Assigned at Female 04/25/2022 2:46 PM EST Legal Sex Female 2:46 PM EST Gender Identity Female 04/25/2022 2:46 PM EST Sexual Orientation Straight 04/25/2022 2: 46 PM EST COVID-19 Exposure Response Date Recorded In the last 10 days, have yo u been in contact with someone who was confirmed or suspected to have Coronavirus/COVID-19? No / Unsure 08/02/2022 1:41 PM EST documented as of this encounter Miscellaneous Notes * Telephone Encounter - Vimal Bowens - 08/17/2022 11:14 AM EDT Tc from pt requesting a referral to be seen by a gastrologist. Please contact pt at [phone] documented in this encounter Plan of Treatment Not on file documented as of this encounter Visit Diagnoses Not on filedocumented in this encounter Additional Health Concerns Assessment Noted Time PHQ-9 Depression Total Score: 16 023 2:00 PM EST documented as of this encounter Care Teams Priest Relationship Specialty Start Date End Date Anju Corrales FNP PCP - General Family Medicine 04/03/22 02/27/23 Karlene Benjamin NP [address] [place] [address] PCP - General Family Medicine 02/28/23 documented as of this encounter
--- OUTSIDE RECORDS SUMMARY | 2025-05-05 03:25 | XMS_ITS | Clinical Summary ---
Author Organization [employer] Address [address] [facility] [address] [place] [address] Care Team Providers Care Bundle Shaker Name Role Phone Karlene Benjamin DANNI Primary Care Provider [phone] Allergies No known active allergies Medications Diclofenac Sodium 1 % gel APPLY 2 GRAMS TOPICALLY TO AFFECTED AREA(S) 4 TIMES A DAY 2 Active [facility] Saline Nasal Kinta 0.65 % nasal spray USE 1-2 SPRAY ON EACH NOSTRIL EVERY 2-3 HOURS NEEDED FOR NASAL CONGESTION 2 Active famotidine (Pepcid) 20 MG tabletIndicatio ns:Heartburn Take 1 tablet (20 mg) by mouth 2 times daily. 180 tablet 1 3 Active Blood Pressure Monitor kitIndications: Anxiety 1 each 2 times daily. 1 kit 3 Active Acetaminophen Extra Strength 500 MG tablet TAKE 1 TABLET BY MOUTH EVERY 6 TO 8 HOURS NEEDED FOR PAIN OR FEVER *MAX 8 TABS DAILY* 40 tablet 1 3 Active ibuprofen 400 MG tablet TAKE 1 TABLET BY MOUTH EVERY 4 TO 6 HOURS NEEDED FOR FEVER OR PAIN 30 tablet 3 Active Active Problems Problem Noted Date Diagnosed Date Heartburn 08/02/2022 Anxiety 08/02/2022 Health care maintenance 08/02/2022 Hypoglycemia 04/03/2022 Encounters Date Type Department Care Team Description 05/04/2025 Orders Only GENERIC EXTERNAL DATA DEPARTMENT Provider, Generic External Data from Last 3 Months Family History Medical History Relation Name Comments Blindness Other Maternal great grandfather Relation Name Status Comments Other Social History Tobacco Use Types Packs/Day Years Used Date Smoking Tobacco: Never Smokeless Tobacco: Never Tobacco Cessation:Counseling Given: Not Answered Depression Answer Date Recorded Patient Health Questionnaire-9 [...] Orientation Straight 04/25/2022 2: 46 PM EST Last Filed Vital Signs Vital Sign Reading Time Taken Comments Blood Pressure 108/76 02/20/2023 10:10 AM EDT Pulse 96 02/20/2023 10:10 AM EDT Temperature 36.8 C (98.3 F) 02/20/2023 10:10 AM EDT Respiratory Rate 17 02/20/2023 10:10 AM EDT Oxygen Saturation 98% 02/20/2023 10:10 AM EDT Inhaled Oxygen Concentration - - Weight 49.5 kg (109 lb 3.2 oz) 02/20/2023 10:10 AM EDT Height 160 cm (5' 3 ) 08/23/2022 3:10 PM EDT Body Mass Index 19.34 08/23/2022 3:10 PM EDT Plan of Treatment Health Maintenance Due Date Last Done Comments Chlamydia and Gonorrhea Screening 2001 HIV Screening 2001 Disability Screening 2001 Alcohol/Substance Use Screening 2013 Family Planning (PISQ) 2016 HPV Vaccines (1 - 3-dose series) 2016 Meningococcal B Vaccine (1 of 2 - Standard) 2017 Hepatitis C Screening 08/26/2019 DTaP/Tdap/Td Vaccines (1 - Tdap) 2020 Hepatitis B Vaccines (1 of 3 - 19+ 3-dose series) 2020 Pap Smear 2022 Depression Monitoring 02/02/2023 08/02/2022, 023 SDOH Screening 08/03/2023 08/02/2022 Tobacco Screening 02/21/2024 02/20/2023 COVID-19 Vaccine (2 - season) 2025 07/04/2022 Influenza Vaccine (#1) 2025 , 06/13/2024, 03/13/2023, Additional history exists Zoster Vaccines (1 of 2) 08/26/2051 RSV Patients and Patients Aged 60 years or older (1 - 1-dose 75+ series) 2076 HIB Vaccines Aged Out No longer eligi ble based on patient's age to complete this topic Hepatitis A Vaccines Aged Out No long er eligible based on patient's age to complete this topic IPV Vaccines Aged Out No longer eligi ble based on patient's age to complete this topic Meningococcal Vaccine Aged Out No marguerite jorge eligible based on patient's age to complete this topic Pneumococcal Vaccine: Pediatrics (0 to 5 Years) and At-Risk Patients (6 to 49) Years Aged Out No longer eligible based on patient's age to complete this topic RSV under 20 months Aged Out No longe r eligible based on patient's age to complete this topic Rotavirus Vaccines Aged Out No longer eligible based on patient's age to complete this topic Procedures Procedure Name Priority Date/Time Associated Diagnosis Comments HCG, TOTAL, QN Routine 05/04/2025 5:46 PM EST SARS COV2/INFLUENZA A/B AND RSV RNA QL NAAT Routine 05/04/2025 5:46 PM EST STREP A NUCLEIC ACID Routine 05/04/2025 5:46 PM EST URINALYSIS, COMPLETE, WITH REFLEX TO CULTURE Routine 05/04/2025 5:42 PM EST HCG, QL, URINE Routine 05/04/2025 5:42 PM EST LIPASE Routine 05/04/2025 5:42 PM EST COMPREHENSIVE METABOLIC PANEL Routine 05/04/2025 5:42 PM EST CBC WITH AUTO DIFFERENTIAL Routine 05/04/2025 5:42 PM EST from Last 3 Months Results * Strep A Nucleic Acid (05/04/2025 5:46 PM EST) IDNOW SERIAL# [id number] [facility] Strep A Nucleic Acid Negative Negative [facility] Comment:All test results mus t be correlated with clinical findings.This test has not been evaluated for monitoring treatment ofinfection.Additional follow-up testing using the culture method isrequired if the result is negative and clinical symptomspersist, or in the event of an acute rheumatic feveroutbreak. 05/04/2025 5:46 PM EST 05/04/2025 5:51 PM EST us Generic External Data Provider LAB MICROBIOLOGY - GENERAL ORDERABLES Final Result [facility] [address] [place] [phone] * SARS-CoV-2 RNA, Influenza A/B, and RSV RNA, Ql NAAT (05/04/2025 5:46 PM EST) Influenza A PCR NEGATIVE Negative [facility] Influenza B PCR NEGATIVE Negative [facility] Resp Syncy Virus RNA Qual PCR NEGATIVE Negative [facility] SARS COV2 PCR NEGATIVE Negative [facility] Comment:All test results mus t be [...] use by authorized laboratories.Testing performed on the Mor[employer]sl GeneXpert utilizingreal-time RT-PCR.All SARS CoV2 and positive influenza A/B results arereported to [facility]. 05/04/2025 5:46 PM EST 05/04/2025 5:51 PM EST Generic External Data Provider LAB MICROBIOLOGY - GENERAL ORDERABLES Final Result Performing Organization Address [facility] Co de Phone Number [facility] [address] [place] [phone] * hCG, Total, Quantitative (05/04/2025 5:46 PM EST) HCG Quantitative <2 mIU/mL [facility] Comment:Weeks post LMP Appro ximate hCG(Last Menstrual Period) Range (mIU/ml)3 - 4 weeks 9 - 1304 - 5 weeks 75 - 2,6005 - 6 weeks 850 - 20,8006 - 7 weeks 4000 - 100,2007 - 12 weeks 11,500 - 289,71259 - 16 weeks 18,300 - 137,81067 - 29 weeks (2nd trimester) 1,400 - 53,14576 - 41 weeks (3rd trimester) 940 - [...] ORDERAB LES Final Result Performing Organization Address [facility] Co de Phone Number [facility] [address] [place] [phone] * (ABNORMAL) Urinalysis, Complete, with Reflex to Culture (05/04/2025 5:42 PM EST) Color Urine Yellow [facility] Appearance Urine Clear [facility] PH 5.0 5.0 - 9.0 [facility] Glucose Urine UA Negative Negative mg/dL [facility] Urine Blood Moderate (2+)(A) Negative [facility] Specific [place] - Urine >=1.030(H) 1.005 - 1.025 [facility] Urine Protein Negative Neg-Trace mg/dL [facility] Urine Ketones Trace Negative mg/dL [facility] Nitrite Urine Negative Negative [facility] Leukocyte Esterase Urine Negative Negative [facility] RBC Urine >20(A) 0 - 2 /HPF [facility] Urine WBC 0-5 0 - 5 /HPF [facility] Urine Squamous Epithelial Cell 0-2 0 - 2 /HPF [facility] Urine Bacteria None Seen None Seen [facility] Hyaline Casts, Urine 0-2 0 - 2 /LPF [facility] 05/04/2025 5:42 PM EST 05/04/2025 5:51 PM EST Narrative [facility] - 05/04/2025 7:00 PM EST [id number], Clean Catch us Generic External Data Provider LAB URINE ORDERAB LES Final Result Performing Organization Address City/State/[facility] Co de Phone Number [facility] [address] [place] [phone] * (ABNORMAL) CBC auto differential (05/04/2025 5:42 PM EST) White Blood Count 4.4(L) 4.8 - 10.8 X10*3/uL [facility] Red Blood Count 4.87 4.20 - 5.50 X10*6/uL [facility] Hemoglobin 13.3 12.0 - 16.0 g/dl [facility] Hematocrit 41.9 37.0 - 47.0 % [facility] Mean Corpuscular Volume 86.0 80.0 - 98.0 fL [facility] Mean Corpuscular Hemoglobin 27.3 27.0 - 33.0 pg [facility] Mean Corpuscular HGB Conc 31.7 31.0 - 35.0 g/dl [facility] Red Cell Distribution Width 13.2 11.0 - 16.0 % [facility] Platelet Count 233 160 - 400 X10*3/uL [facility] Mean Platelet Volume 10.2 9.4 - 12.3 fL [facility] Neutrophils Percent Auto 62.6 45 - 73 % [facility] Imm Gran Pct Auto 0.2 0.0 - 0.4 % [facility] Lymphocytes Percent Auto 26.6 20 - 40 % [facility] Monocytes Percent Auto 7.2 2 - 11 % [facility] Eosinophils Percent Auto 2.9 0 - 4 % [facility] Basophils Percent Auto 0.5 0 - 2 % [facility] NRBC Pct Auto 0.0 0.0 - 0.2 /100WBC [facility] Neutrophils Absolute Auto 2.8 2.0 - 8.3 x10*3/uL [facility] Imm Gran Abs Auto 0.01 0.00 - 0.03 X10*3/uL [facility] Lymphocytes Absolute Auto 1.2 1.2 - 4.9 X10*3/uL [facility] Monocytes Absolute Auto 0.3 0.1 - 1.2 X10*3/uL [facility] Eosinophils Absolute Auto 0.1 0.0 - 0.4 X10*3/uL [facility] Basophils Absolute Auto 0.0 0.0 - 0.2 X10*3/uL [facility] NRBC Abs Auto 0.000 0.0 - 0.012 X10*3/uL [facility] 05/04/2025 5:42 PM EST 05/04/2025 5:51 PM EST us Generic External Data Provider LAB BLOOD ORDERAB LES Final Result Performing Organization Address [facility] Co de Phone Number [facility] [address] [place] [phone] * HCG, Qualitative, Urine (05/04/2025 5:42 PM EST) Pathologist [facility] Urine NEGATIVE NEGATIVE [facility] Comment:This test was develo ped to detect early . Falsenegative results may occur after the 5th - 7th week ofpregnancy when using this test method. If clinicallyindicated, consider a serum hCG. 05/04/2025 5:42 PM EST 05/04/2025 5:51 PM EST Generic External Data Provider LAB URINE ORDERAB LES Final Result Performing Organization Address [facility] Co de Phone Number [facility] [address] [place] [phone] * Lipase (05/04/2025 5:42 PM EST) Pathologist [facility] Lipase 19 8 - 78 U/L [facility] 05/04/2025 5:42 PM EST 05/04/2025 5:51 PM EST Generic External Data Provider LAB BLOOD ORDERAB LES Final Result Performing Organization Address [facility] Co de Phone Number [facility] [address] [place] [phone] * (ABNORMAL) Comprehensive Metabolic Panel (05/04/2025 5:42 PM EST) [facility] Sodium 142 135 - 145 mmol/L [facility] Potassium 3.8 3.3 - 5.1 mmol/L [facility] Chloride 106 96 - 108 mmol/L [facility] Carbon Dioxide 27 22 - 29 mmol/L [facility] Anion Gap 13 12 - 20 [facility] Urea Nitrogen (BUN) 13 9 - 16 mg/dL [facility] Creatinine, Serum 0.69 0.5 - 1.4 mg/dL [facility] Creatinine Clr Calc Pharmacy 101.8 [facility] Comment:Provided height and weight: 160.02 cm,50.9 kg.eGFR (calculated from the MDRD study equation) and eCrCl(calculated from the Cockcroft-Gault equation) are based ondifferent parameters and may not yield comparable results.If eCrCl result is absurd, please check patient'sheight/weight. Estimated Glomerular Filt Rate >60 [facility] Comment:Chronic Kidney Disea se: Estimated GFR < 60 mL/min/1.93u6Ozfhaa Kidney Disease: Estimated GFR < 15 mL/min/1.73m2 Glucose 91 60 - 115 mg/dL [facility] Calcium 9.6 8.4 - 10.2 mg/dL [facility] Bilirubin, Total 0.3 0.0 - 1.0 mg/dL [facility] Aspartate Amino Transferase 26 5 - 31 U/L [facility] Alanine Aminotransferase 19 0 - 31 U/L [facility] Total Protein 8.1(H) 6.5 - 8.0 g/dL [facility] Albumin Level 5.0 3.5 - 5.0 g/dL [facility] Alkaline Phosphatase 59 39 - 117 U/L [facility] 05/04/2025 5:42 PM EST 05/04/2025 5:51 PM EST us Generic External Data Provider LAB BLOOD ORDERAB LES Final Result [facility] [address] [place] [phone] from Last 3 Months Insurance [facility] C3 Care Teams Bundle Shaker Relationship Specialty Start Date End Date Karlene Benjamin NP [address] [place] [phone] PCP - General Family Medicine 02/28/23
[2025-05-05] MEDS: Lactated Ringers 1,000 ML 999 ML IV (04:46)
[2025-05-05 07:05] VITALS: BP 101/59; PULSE 78; RESP 14; O2SAT 99
[2025-05-05 07:41] VITALS: BP 101/59; PULSE 78; RESP 14; TEMP 36.7; O2SAT 99
== END 2025-05-05 08:01 | disposition home or self-care (01) ==
PROVIDERS: Physician Assistant; Emergency Provider Emergency Medicine
DX: K29.00 Acute gastritis without bleeding (principal); R11.2 Nausea with vomiting, unspecified; R10.10 Upper abdominal pain, unspecified; Z03.818 Encounter for observation for suspected exposure to other biological agents ruled out
CPT/HCPCS: 36415; 76705; 80053; 81001; 81025; 83690; 84702; 85025; 87637; 87651; 96361; 96374; 99284; J2405; J7120

== ENCOUNTER → 2025-05-05 04:31 | Outpatient (BNV) | payer OTHER, SELFPAY | PROVIDERS: Emergency Provider Emergency Medicine; Visit Provider Radiology Diagnostic Radiology | DX: R10.10 Upper abdominal pain, unspecified (principal) | CPT/HCPCS: 76705 ==

== ENCOUNTER 2025-05-15 13:03 | Emergency (ER) | payer OTHER, SELFPAY ==
[2025-05-15 14:00] VITALS: BP 106/59; PULSE 92; RESP 18; TEMP 36.8; O2SAT 99; BMI 19.9
--- NOTE | 2025-05-15 14:00 | ED.FEMALEGU ---
HPI - Female Genitourinary General Chief complaint: Urogenital-Female Stated complaint: IRREGULAR/HEAVY BLEEDING MENSTRAUL Time Seen by Provider: 05/15/25 15:54 History of Present Illness ED Provider: Sissy Jackson NP HPI Narrative: 24-year-old female with no significant past medical history presents to the ED for evaluation of 3-5 days of hematuria, as well as vaginal bleeding, with some dysuria. She denies any urgency or frequency. She is sexually active, LMP 04/23/2025. Reports her menstrual cycle is irregular. Denies any unilateral pelvic pain, reports lower abdominal/pelvic cramping. Does endorse abnormal vaginal discharge, no odor. Denies any nausea or vomiting, diarrhea or constipation. This is no chest pain or pressure, shortness of breath. No fever, chills. Related Data Home Medications ?Medication ?Instructions ?Recorded ?Confirmed benzonatate 100 mg capsule 100 mg PO BID PRN cough 04/02/23 05/14/23 famotidine 20 mg tablet 20 mg PO BID 04/02/23 05/14/23 fluoride (sodium) 1.1 % dental appl PO BEDTIME 04/02/23 05/14/23 cream (Denta 5000 Plus) Previous Rx's ?Medication ?Instructions ?Recorded albuterol sulfate 90 mcg/actuation 2 inh inhalation Q4-6H PRN 02/28/23 breath activated powder inhaler shortness of breath or wheezing #1 ea sucralfate 1 gram tablet 1 g PO BID 4 weeks #56 tabs 04/02/23 ondansetron 4 mg disintegrating 4 mg PO Q8H PRN nausea and 05/05/25 tablet vomiting #20 tabs sucralfate 100 mg/mL oral 1 g (10 mL) PO BID 7 days #140 mL 05/05/25 suspension metronidazole 500 mg tablet 500 mg PO BID 7 days #14 tabs 05/15/25 Allergies Allergy/AdvReac Type Severity Reaction Status Date / Time No Known Allergies Allergy Verified 05/15/25 14:03 Review of Systems Review of Systems: ROS is otherwise negative unless mentioned in HPI. [facility] Past Medical History Medical History (Updated 05/15/25 @ 18:11 by Sissy Jackson, JONNATHAN-) Heartburn Social History Social History Household Members Other:: G. mother Patient Tobacco Use Status: Never used Tobacco Advance Directives: No Advance Directives Information Provided: No Do you have a plan to hurt others: No Plan Patient : No Current occupational status: employed Current occupation: [employer] Physical Exam Exam: Exam: Nursing notes and vital signs reviewed. Constitutional: Well-appearing, NAD. Alert. Oriented X3. Eyes: EOMI. ENT: Pharynx normal. Neck: Normal inspection. Neck supple. CVS: Pulses normal. Respiratory: No respiratory distress. Abdomen: Soft, nontender, nondistended. No CVA tenderness b/l. Pelvic: No CMT. No adnexal tenderness. Yellow-white colored discharge within canal. Os is closed. No bleeding noted. Skin: Skin warm and dry. Extremities: No lower extremity edema. Neuro: Oriented X 3. No motor deficit. Vital Signs: Vital Signs: Last Vital Signs Temp 98.2 F 05/15/25 14:00 Pulse 92 05/15/25 14:00 Resp 18 05/15/25 14:00 BP 106/59 L 05/15/25 14:00 Pulse Ox 99 05/15/25 14:00 O2 Del Method Room Air 05/15/25 14:00 BMI result Body Mass Index 19.9 Course Course Course Narrative: Mar Darnell HR MANAGER 05/15 1400 This is a rapid medical exam. Deferred additional HPI, ROS, PE to primary provider. 24 yo female here with 5 days of hematuria, dysuria, suprapubic pain. LMP 1128. Will obtain labs, UA, ur preg. VSS Medical Decision Making Medical Decision Making MDM Narrative: school admissions representative service was utilized for the visit. Exam shows a well-appearing female, NAD. She complains of lower pelvic cramping ongoing for about 5 days, as well as some vaginal bleeding, and abnormal discharge. Does report some associated dysuria, as well as hematuria. However, less likely to be hematuria, and more likely to be related to menstrual cycle. Low clinical suspicion for renal stone given the absence of flank pain. Her pelvic exam shows yellow to white discharge within the canal, there is no CMT or adnexal tenderness. Abdominal exam is benign, no CVA tenderness bilaterally. Labs were ordered by the triage provider, which are overall reassuring. Urinalysis is currently pending. She was seen in our ED 05/04/2025, at that time for upper abdominal pain with nausea, vomiting. Had a reassuring abdominal ultrasound and was discharged home. The symptoms have since resolved. Pending urinalysis for reassessment. 6:00 PM-- urinalysis shows moderate leuks but no bacteria. This is not indicative of a UTI. There is large blood, correlating as she is currently on her menstrual cycle. Plan to treat her with Flagyl for bacterial vaginosis prophylactically given the swabs will not come back until Saturday. Recommended [id number] use of Tylenol, ibuprofen. I also recommended she follows up outpatient with OBGYN. Given return precautions to the ED, for which she is agreeable. Differential Diagnosis Differential Diagnoses: The differential diagnosis associated with the presentation includes Bacterial vaginosis, STI, cystitis, pyelonephritis, renal stone Admission/Observation Consideration of admission/observation: Escalation of care including admission/observation considered (Not indicated) Lab Data MDM Lab Attestation statement: I reviewed the patient's lab results. (Overall reassuring) 05/15/25 15:01 05/15/25 15:01 Labs: Lab Results 05/15/25 05/15/25 Range/Units 15:01 15:29 WBC 8.0 (4.8-10.8) X10*3/uL RBC 4.70 (4.20-5.50) X10*6/uL Hgb 12.8 (12.0-16.0) g/dl Hct 39.4 (37.0-47.0) % MCV 83.8 (80.0-98.0) fL MCH 27.2 (27.0-33.0) pg MCHC 32.5 (31.0-35.0) g/dl RDW 13.3 (11.0-16.0) % Plt Count 176 (160-400) X10*3/uL MPV 10.5 (9.4-12.3) fL Immature Gran % (Auto) 0.1 (0.0-0.4) % Neut % (Auto) 80.0 H (45-73) % Lymph % (Auto) 12.8 L (20-40) % [place] % (Auto) 5.0 (2-11) % Eos % (Auto) 1.8 (0-4) % Baso % (Auto) 0.3 (0-2) % Lymph # (Auto) 1.0 L (1.2-4.9) X10*3/uL [place] # (Auto) 0.4 (0.1-1.2) X10*3/uL Eos # (Auto) 0.1 (0.0-0.4) X10*3/uL Baso # (Auto) 0.0 (0.0-0.2) X10*3/uL Abs Immat Gran (auto) 0.01 (0.00-0.03) X10*3/uL Absolute Neuts (auto) 6.4 (2.0-8.3) x10*3/uL Absolute Nucleated RBC 0.000 (0.0-0.012) X10*3/uL Nucleated RBC % (auto) 0.0 (0.0-0.2) /100WBC Sodium 141 (135-145) mmol/L Potassium 4.0 (3.3-5.1) mmol/L Chloride 108 (96-108) mmol/L Carbon Dioxide 24 (22-29) mmol/L Anion Gap 13 (12-20) BUN 10 (9-16) mg/dL Creatinine 0.61 (0.5-1.4) mg/dL Estim Creat Clear Calc 115.2 Estimated GFR > 60 Random Glucose 89 (60-115) mg/dL Calcium 9.6 (8.4-10.2) mg/dL Urine Color RED Urine Appearance Hazy Urine pH 7.0 (5.0-9.0) Ur Specific [place] 1.010 (1.005-1.025) Urine Protein Trace (Neg-Trace) mg/dL Urine Glucose (UA) Negative (Negative) mg/dL Urine Ketones Negative (Negative) mg/dL Urine Blood Large (3+) H (Negative) Urine Nitrite Negative (Negative) Ur Leukocyte Esterase Moderate (2+) H (Negative) Urine RBC >20 H (0-2) /HPF Urine WBC >50 H (0-5) /HPF Ur Squamous Epith Cells 0-2 (0-2) /HPF Urine Bacteria None Seen (None Seen) Hyaline Casts 0-2 (0-2) /LPF Urine Test NEGATIVE (NEGATIVE) Independent Historian None External Record Review External record reviewed: Other (Prior ED records) Social Determinants Patient?s care significantly limited by Social Determinants of Health including: Problems related to primary support group Discharge Plan Discharge Clinical Impression: Vaginal discharge Patient Disposition: Home, Self-Care Instructions: Vaginal Discharge (ED) Additional Instructions: As we discussed, you were seen here today for evaluation of burning on urination, as well as vaginal discharge. The pelvic exam showed that you have yellow to white colored discharge. New lab work is overall reassuring. The urine sample does show large blood, but your currently on her menstrual cycle. There is not currently on evidence of any urinary infection. You were also negative for . The STD testing, as well as bacterial vaginosis testing is currently pending. We will contact you via phone with positive results. However, we are treating you prophylactically with Flagyl, antibiotic medication, for bacterial vaginosis given your pelvic exam. Please take this medication as prescribed. You may use Tylenol/Ibuprofen as needed for pelvic cramping. If you develop any worsening complaints at any time, please seek re-evaluation in the ED. We would also like for you to follow up outpatient with OBGYN. I have listed them on your paperwork for your convenience. Prescriptions: New metronidazole 500 mg tablet 500 mg PO BID 7 Days Qty: 14 0RF No Action sucralfate 100 mg/mL suspension 1 g PO BID 7 Days Qty: 140 0RF ondansetron 4 mg tablet,disintegrating 4 mg PO Q8H PRN (Reason: nausea and vomiting) Qty: 20 0RF albuterol sulfate 90 mcg/actuation aerosol powdr breath activated 2 inh inhalation Q4-6H PRN (Reason: shortness of breath or wheezing) Qty: 1 0RF famotidine 20 mg tablet 20 mg PO BID benzonatate 100 mg capsule 100 mg PO BID PRN (Reason: cough) fluoride (sodium) [Denta 5000 Plus] 1.1 % cream PO BEDTIME sucralfate 1 gram tablet 1 g PO BID 28 Days Qty: 56 1RF [place] [facility] [place] [facility] [place] Group] Print Language: Occitan
[2025-05-15 15:06] LABS: MANUAL DIFF FLAG NO
[2025-05-15 15:15] LABS: Hematocrit 39.4 % (37.0-47.0); Hemoglobin 12.8 g/dl (12.0-16.0); Imm Gran Abs Auto 0.01 X10*3/uL (0.00-0.03); Imm Gran Pct Auto 0.1 % (0.0-0.4); Lymphocytes Absolute Auto 1.0 X10*3/uL (1.2-4.9); Mean Corpuscular HGB Conc 32.5 g/dl (31.0-35.0); Mean Corpuscular Hemoglobin 27.2 pg (27.0-33.0); Mean Corpuscular Volume 83.8 fL (80.0-98.0); NRBC Abs Auto 0.000 X10*3/uL (0.0-0.012); NRBC Pct Auto 0.0 /100WBC (0.0-0.2); Platelet Count 176 X10*3/uL (160-400); Red Blood Count 4.70 X10*6/uL (4.20-5.50); White Blood Count 8.0 X10*3/uL (4.8-10.8)
[2025-05-15 15:23] LABS: Anion Gap 13 (12-20); Blood Urea Nitrogen 10 mg/dL (9-16); Calcium 9.6 mg/dL (8.4-10.2); Carbon Dioxide 24 mmol/L (22-29); Chloride 108 mmol/L (96-108); Creatinine Clr Calc Pharmacy 115.2; Estimated Glomerular Filt Rate > 60; Potassium 4.0 mmol/L (3.3-5.1); Sodium 141 mmol/L (135-145)
--- OUTSIDE RECORDS SUMMARY | 2025-05-15 15:58 | XMS_ITS | Encounter Summary ---
Author Organization [employer] Address [address] [facility] [address] [place] [address] Care Team Providers Care Heater Operator Helper Name Role Phone Anju Corrales [employer] Primary Care Provider Karlene Ward FIELD MARKETING LEAD Primary Care Provider [phone] Reason for Visit * Reason Onset Date Comments Referral 08/17/2022 Encounter Details Date Type Department Care Team ([facility] st Contact Info) Description 08/17/2022 Telephone [facility] MEDICINE [address] [place] [address] Anju Corrales FNP Referral Social History Tobacco [...] by a gastrologist. Please contact pt at [phone] documented in this encounter Plan of Treatment Not on file documented as of this encounter Visit Diagnoses Not on filedocumented in this encounter Additional Health Concerns Assessment Noted Time PHQ-9 Depression Total Score: 16 023 2:00 PM EST documented as of this encounter Care Teams Heater Operator Helper Relationship Specialty Start Date End Date Anju Corrales FNP PCP - General Family Medicine 04/03/22 02/27/23 Karlene Benjamin NP [address] [place] [address] PCP - General Family Medicine 02/28/23 documented as of this encounter
--- OUTSIDE RECORDS SUMMARY | 2025-05-15 15:59 | XMS_ITS | Clinical Summary ---
Author Organization [employer] Address [address] [place] [address] Care Team Providers Care Supervisor Title Name Role Phone Karlene Benjamin DANNI Primary Care Provider [phone] Allergies No known active allergies Medications Diclofenac Sodium 1 % gel APPLY 2 GRAMS TOPICALLY TO AFFECTED AREA(S) 4 TIMES A DAY 2 Active [facility] Saline Nasal [place] 0.65 % nasal spray USE 1-2 SPRAY [...] Procedure Name Priority Date/Time Associated Diagnosis Comments US ABDOMEN LIMITED Routine 05/05/2025 6: 15 AM EST HCG, TOTAL, QN Routine 05/04/2025 5:46 [...] EST from Last 3 Months Results * US Abdomen Limited (05/05/2025 6:15 AM EST) Anatomical Region Laterality Modality Abdomen Ultrasound 05/05/2025 6:15 AM EST Narrative 05/05/2025 7:01 AM EST [place] [address] Ultrasound Report Signed Patient: Jessenia Wang MR#: [id number] : 2000 Acct:[id number] Age/Sex: 24 / F ADM Date: 05/05/25 Loc: HO.ED Attending Dr: Ordering Physician: Eleni Vargas DO Date of Service: 05/05/25 Procedure(s): US abdomen limited Accession Number(s): [id number] cc: Eleni Vargas DO; [facility] Reason for Exam: upper abd pain EXAMINATION: US ABDOMEN LIMITED CLINICAL INFORMATION: Upper abdominal pain.. COMPARISON: None available. TECHNIQUE: Real-time ultrasound of the right upper quadrant abdomen using grayscale technique. FINDINGS: Liver measures 14 cm. Coarse echotexture. No nodular surface. No solid or cystic lesion. Main portal vein is patent with normal hepatopedal flow direction. Gallbladder is fluid-filled contracted. No pericholecystic fluid collection or gallbladder wall thickening. Common bile duct measures 3 mm. Right kidney measures 11 cm. Normal echotexture. Renal cortical thickness is normal. No hydronephrosis. No solid or cystic lesion. No ascites. US/US abdomen limited IMPRESSION: No cholelithiasis or choledocholithiasis. No ascites. Normal-sized liver. Electronically signed by: Umer Hall MD 05/05/2025 06:58 AM EST RP Dictated By: Umer Hollingsworth MD Signed By: <Electronically signed by Umer Greenberg MD in OV> 05/05/25 0658 DD/ TD/TT: 05/05/25 0640 Emergency Department Physician: Procedure Note Donotuseinterpreter, Image - 05/05/2025 [place] [address] Ultrasound Report Signed Patient: Jessenia Wang [facility]#: [id number] : 2000Acct:[id number] Age/Sex: 24 / FADM Date: 05/05/25 Loc: HO.ED Attending Dr: Ordering Physician: Eleni Vargas DO Date of Service: 05/05/25 Procedure(s): US abdomen limited Accession Number(s): [id number] cc: Eleni Vargas DO; [facility] Reason for Exam: upper abd pain EXAMINATION: US ABDOMEN LIMITED CLINICAL INFORMATION: Upper abdominal pain.. COMPARISON: None available. TECHNIQUE: Real-time ultrasound of the right upper quadrant abdomen using grayscale technique. FINDINGS: Liver measures 14 cm. Coarse echotexture. No nodular surface. No solid or cystic lesion. Main portal vein is patent with normal hepatopedal flow direction. Gallbladder is fluid-filled contracted. No pericholecystic fluid collection or gallbladder wall thickening. Common bile duct measures 3 mm. Right kidney measures 11 cm. Normal echotexture. Renal cortical thickness is normal. No hydronephrosis. No solid or cystic lesion. No ascites. US/US abdomen limited IMPRESSION: No cholelithiasis or choledocholithiasis. No ascites. Normal-sized liver. Electronically signed by: Umer Hall MD 05/05/2025 06:58 AM EST RP Dictated By: Umer Hollingsworth MD Signed By: <Electronically signed by Zaid Fuller OV> 05/05/25 0658 DD/ TD/TT: 05/05/2540 Emergency Department Physician: us [facility] External Provider IMG US PROCEDURES Final Result * Strep A Nucleic Acid (05/04/2025 5:46 PM EST) IDNOW SERIAL# [id number] [facility] Strep A Nucleic Acid Negative Negative [facility] Comment:All test results mus t [...] LAB MICROBIOLOGY - GENERAL ORDERABLES Final Result [facility] [address] [place] [phone] * SARS-CoV-2 RNA, Influenza A/B, and RSV RNA, Ql NAAT (05/04/2025 5:46 PM EST) Influenza A PCR NEGATIVE Negative [facility] Influenza B PCR NEGATIVE Negative [facility] Resp Syncy Virus RNA Qual PCR NEGATIVE Negative [facility] SARS COV2 PCR NEGATIVE Negative [facility] Comment:All test results mus t be [...] use by authorized laboratories.Testing performed on the [employer] GeneXpert utilizingreal-time RT-PCR.All SARS CoV2 and positive influenza A/B results arereported to [facility]. 05/04/2025 5:46 PM EST 05/04/2025 5:51 PM EST Generic External Data Provider LAB MICROBIOLOGY - GENERAL ORDERABLES Final Result Performing Organization Address City/[facility]/ZIP Co de Phone Number [facility] [address] [place] [phone] * hCG, Total, Quantitative (05/04/2025 5:46 PM EST) HCG Quantitative <2 mIU/mL [facility] Comment:Weeks post LMP Appro ximate hCG(Last Menstrual Period) Range (mIU/ml)3 - 4 weeks 9 - 1304 - 5 weeks 75 - 2,6005 - 6 weeks 850 - 20,8006 - 7 weeks 4000 - 100,2007 - 12 weeks 11,500 - 289,48760 - 16 weeks 18,300 - 137,94898 - 29 weeks (2nd trimester) 1,400 - 53,15612 - 41 weeks (3rd trimester) 940 - [...] ORDERAB LES Final Result Performing Organization Address City/[facility]/ZIP Co de Phone Number [facility] [address] [place] [address] [phone] * (ABNORMAL) Urinalysis, Complete, with Reflex to Culture (05/04/2025 5:42 PM EST) Color Urine Yellow [facility] Appearance Urine Clear [facility] PH 5.0 5.0 - 9.0 [facility] Glucose Urine UA Negative Negative mg/dL [facility] Urine Blood Moderate (2+)(A) Negative [facility] Specific Mims - Urine >=1.030(H) 1.005 - 1.025 [facility] Urine Protein Negative Neg-Trace mg/dL [facility] Urine Ketones Trace Negative mg/dL [facility] Nitrite Urine Negative Negative [facility] Leukocyte Esterase Urine Negative Negative [facility] RBC Urine >20(A) 0 - 2 /HPF [facility] Urine WBC 0-5 0 - 5 /HPF [facility] Urine Squamous Epithelial Cell 0-2 0 - 2 /HPF [facility] Urine Bacteria None Seen None Seen [facility] Hyaline Casts, Urine 0-2 0 - 2 /LPF [facility] 05/04/2025 5:42 PM EST 05/04/2025 5:51 PM EST Narrative [facility] - 05/04/2025 7:00 PM EST [id number], [employer] us Generic External Data Provider LAB URINE ORDERAB LES Final Result [facility] [address] [place] [phone] * (ABNORMAL) CBC auto differential (05/04/2025 5:42 PM EST) White Blood Count 4.4(L) 4.8 - 10.8 X10*3/uL [facility] Red Blood Count 4.87 4.20 - 5.50 X10*6/uL [facility] Hemoglobin 13.3 12.0 - 16.0 g/dl [facility] Hematocrit 41.9 37.0 - 47.0 % [facility] Mean Corpuscular Volume 86.0 80.0 - 98.0 fL [facility] Mean Corpuscular Hemoglobin 27.3 27.0 - 33.0 pg [facility] Mean Corpuscular HGB Conc 31.7 31.0 - 35.0 g/dl [facility] Red Cell Distribution Width 13.2 11.0 - 16.0 % [facility] Platelet Count 233 160 - 400 X10*3/uL [facility] Mean Platelet Volume 10.2 9.4 - 12.3 fL [facility] Neutrophils Percent Auto 62.6 45 - 73 % [facility] Imm Gran Pct Auto 0.2 0.0 - 0.4 % [facility] Lymphocytes Percent Auto 26.6 20 - 40 % [facility] Monocytes Percent Auto 7.2 2 - 11 % [facility] Eosinophils Percent Auto 2.9 0 - 4 % [facility] Basophils Percent Auto 0.5 0 - 2 % [facility] NRBC Pct Auto 0.0 0.0 - 0.2 /100WBC [facility] Neutrophils Absolute Auto 2.8 2.0 - 8.3 x10*3/uL [facility] Imm Gran Abs Auto 0.01 0.00 - 0.03 X10*3/uL [facility] Lymphocytes Absolute Auto 1.2 1.2 - 4.9 X10*3/uL [facility] Monocytes Absolute Auto 0.3 0.1 - 1.2 X10*3/uL [facility] Eosinophils Absolute Auto 0.1 0.0 - 0.4 X10*3/uL [facility] Basophils Absolute Auto 0.0 0.0 - 0.2 X10*3/uL [facility] NRBC Abs Auto 0.000 0.0 - 0.012 X10*3/uL [facility] 05/04/2025 5:42 PM EST 05/04/2025 5:51 PM EST us Generic External Data Provider LAB BLOOD ORDERAB LES Final Result [facility] [address] [place] [phone] * HCG, Qualitative, Urine (05/04/2025 5:42 PM EST) Urine NEGATIVE NEGATIVE [facility] Comment:This test was develo ped to detect early . Falsenegative results may occur after the 5th - 7th week ofpregnancy when using this test method. If clinicallyindicated, consider a serum hCG. 05/04/2025 5:42 PM EST 05/04/2025 5:51 PM EST Generic External Data Provider LAB URINE ORDERAB LES Final Result Performing Organization Address [facility]/ZIP Co de Phone Number [facility] [address] [place] [phone] * Lipase (05/04/2025 5:42 PM EST) [facility] Lipase 19 8 - 78 U/L [facility] 05/04/2025 5:42 PM EST 05/04/2025 5:51 PM EST [employer] External Data Provider LAB BLOOD ORDERAB LES Final Result Performing Organization Address [facility] de Phone Number [facility] [address] [place] [phone] * (ABNORMAL) Comprehensive Metabolic Panel (05/04/2025 5:42 PM EST) [facility] Sodium 142 135 - 145 mmol/L [facility] Potassium 3.8 3.3 - 5.1 mmol/L [facility] Chloride 106 96 - 108 mmol/L [facility] Carbon Dioxide 27 22 - 29 mmol/L [facility] Anion Gap 13 12 - 20 [facility] Urea Nitrogen (BUN) 13 9 - 16 mg/dL [facility] Creatinine, Serum 0.69 0.5 - 1.4 mg/dL [facility] Creatinine Clr Calc Pharmacy 101.8 [facility] Comment:Provided height and weight: 160.02 cm,50.9 kg.eGFR (calculated from the MDRD study equation) and eCrCl(calculated from the Cockcroft-Gault equation) are based ondifferent parameters and may not yield comparable results.If eCrCl result is absurd, please check patient'sheight/weight. Estimated Glomerular Filt Rate >60 [facility] Comment:Chronic Kidney Disea se: Estimated GFR < 60 mL/min/[id number] Kidney Disease: Estimated GFR < 15 mL/min/1.73m2 Glucose 91 60 - 115 mg/dL [facility] Calcium 9.6 8.4 - 10.2 mg/dL [facility] Bilirubin, Total 0.3 0.0 - 1.0 mg/dL [facility] Aspartate Amino Transferase 26 5 - 31 U/L [facility] Alanine Aminotransferase 19 0 - 31 U/L [facility] Total Protein 8.1(H) 6.5 - 8.0 g/dL [facility] Albumin Level 5.0 3.5 - 5.0 g/dL [facility] Alkaline Phosphatase 59 39 - 117 U/L [facility] 05/04/2025 5:42 PM EST 05/04/2025 5:51 PM EST us Generic External Data Provider LAB BLOOD ORDERAB LES Final Result [facility] [address] [place] [phone] from Last 3 Months [email or web address] Care Teams Supervisor Title Relationship Specialty Start Date End Date Karlene Benjamin NP [address] [place] [address] PCP - General Family Medicine 02/28/23
[2025-05-15 16:11] LABS: Appearance Urine Hazy; Glucose Urine UA Negative (Negative); PH 7.0 (5.0-9.0); Specific Gravity - Urine 1.010 (1.005-1.025); UMIC TRIGGER UACC YES
[2025-05-15 16:13] LABS: UPreg QC Valid YES
[2025-05-15 16:21] LABS: UACC Culture Trigger YES
[2025-05-15 18:34] VITALS: BP 106/59; PULSE 92; RESP 18; TEMP 36.8; O2SAT 99
[2025-05-16 09:37] LABS: Bacterial Vaginosis PCR POSITIVE (Negative); Candida Group PCR NOT DETECTED (Not Detect); Candida glab krusei PCR NOT DETECTED (Not Detect); Trichomonas vaginalis PCR NOT DETECTED (Not Detect)
[2025-05-16 10:08] LABS: CT PCR NOT DETECTED (Not Detect.); NG PCR NOT DETECTED (Not Detect.)
== END 2025-05-15 18:34 | disposition home or self-care (01) ==
PROVIDERS: Nurse Practitioner; Nurse Practitioner Family; Emergency Provider Emergency Medicine
DX: N89.8 Other specified noninflammatory disorders of vagina (principal); Z20.2 Contact with and (suspected) exposure to infections with a predominantly sexual mode of transmission
CPT/HCPCS: 36415; 80048; 81001; 81025; 81515; 85025; 87086; 87491; 87591; 99283; 99284